=== PATIENT | female | born 1970 | race Caucasian/White ===

== ENCOUNTER 2016-11-10 20:31 | Emergency (ER) | payer OTHER ==
[2016-11-10 21:02] LABS: BASOPHIL 0.1 % (0-2); EOSINOPHIL 3.2 % (0-5); HCT 37.8 % (37.0-47.0); HGB 12.4 g/dl (12.5-16.0); LYMPHOCYTE 32.4 % (15-48); MCH 26.5 pg (25.0-31.0); MCHC 32.8 g/dL (32.0-36.0); MCV 80.8 fL (78.0-100.0); MONOCYTE 5.6 % (0-12); MPV 9.3 fL (6.0-9.5); NEUTROPHIL 58.7 % (41-80); PLT 239 K/uL (150-400); RBC 4.68 M/uL (4.20-5.40); RDW 15.5 % (11.5-14.0)
[2016-11-10 21:12] LABS: INR 0.96 (0.9-1.2); PROTHROMBIN TIME 12.4 SECONDS (11.7-14.0); PTT 30.5 SECONDS (23.2-31.4)
[2016-11-10 21:14] LABS: D-DIMER 0.83 ug/mLFEU (0.00-0.41)
[2016-11-10 21:23] LABS: CKMB 2.01 ng/mL (0.97-4.94); MYOGLOBIN 30 ng/mL (26-65); PRO-BNP 114 pg/mL (0-125); TROPONIN T < 0.010 ng/mL
[2016-11-10 21:24] LABS: ALBUMIN 4.2 g/dL (3.5-5.0); BILIRUBIN - TOTAL 0.2 mg/dL (0.1-1.0); CREATININE 0.8 mg/dL (0.5-1.0); MAGNESIUM 2.04 mg/dL (1.40-2.10); POTASSIUM 3.7 mmol/L (3.5-5.1); TOTAL PROTEIN 6.2 g/dL (6.4-8.3)
== END 2016-11-11 00:27 | disposition home or self-care (01) ==
LOC: FER 20:31
PROVIDERS: Emergency Medicine
DX: R07.89 Other chest pain (principal); R11.2 Nausea with vomiting, unspecified; I10 Essential (primary) hypertension; K21.9 Gastro-esophageal reflux disease without esophagitis; J43.2 Centrilobular emphysema; J45.909 Unspecified asthma, uncomplicated; E78.5 Hyperlipidemia, unspecified; Z72.0 Tobacco use; Z86.711 Personal history of pulmonary embolism; Z98.84 Bariatric surgery status
CPT/HCPCS: 36415; 71010; 71275; 80053; 82550; 82553; 83735; 83874; 83880; 84484; 85025; 85379; 85610; 85730; 93005; 93971; J2270; J2930; Q9967

== ENCOUNTER 2020-08-28 11:18 | Emergency (ER) | payer OTHER ==
[~2020-08-28 11:18] MED LIST: ASPIRIN EC81 MG PO; BACLOFEN 20MG T20 MG PO; CLOBETASOL EMOL15 GM TOP; COMBIVENT RESPIM4 GM INH; DUONEB 2.5-0.5M1 AMP INH; ELMIRON100 MG PO; FENOFIBRATE200 MG PO; FLONASE ALLER15.8 ML; IRON325 M1 PO; LIPITOR40 MG PO; NEURONTIN400 MG PO; NITROQUIK SL0.4 MG SL; PHENERGAN25 M1 PO; PROTONIX 40MG T40 MG PO; REQUIP1 MG PO; VENTOLIN HFA IN18 GM INH; VICODIN 10/3251 EACH PO; XARELTO15 MG PO
[2020-08-28 12:06] LABS: BASOPHIL 0.3 % (0-2); EOSINOPHIL 2.1 % (0-5); HCT 39.7 % (37.0-47.0); HGB 12.9 g/dl (12.5-16.0); MCH 28.5 pg (25.0-31.0); MCHC 32.5 g/dL (32.0-36.0); MCV 87.8 fL (78.0-100.0); MONOCYTE 5.2 % (0-12); MPV 9.4 fL (6.0-9.5); NEUTROPHIL 77.1 % (41-80); NRBC 0; PLT 160 K/uL (150-400); RBC 4.52 M/uL (4.20-5.40); RDW 14.5 % (11.5-14.0); WBC 9.7 K/uL (4.0-10.5)
[2020-08-28 12:10] LABS: INR 0.99 (0.9-1.2); PROTHROMBIN TIME 12.4 SECONDS (11.4-13.6); PTT 31.3 SECONDS (22.2-34.7)
[2020-08-28 12:12] LABS: D-DIMER 1.09 ug/mLFEU (0.00-0.41)
[2020-08-28 12:18] LABS: ALBUMIN 3.3 g/dL (3.4-5.0); BILIRUBIN - TOTAL 0.4 mg/dL (0.2-1.0); BUN/CREAT RATIO (CALC) 14.1 RATIO; CREATININE 0.78 mg/dL (0.51-0.95); GLOBULIN (CALCULATION) 3.8 g/dL; POTASSIUM 3.9 mmol/L (3.5-5.1); TOTAL PROTEIN 7.1 g/dL (6.4-8.2)
[2020-08-28 12:24] LABS: CKMB 0.5 ng/mL (0.0-3.6)
== END 2020-08-28 18:40 | disposition home or self-care (01) ==
LOC: FER 11:18
PROVIDERS: Emergency Medicine
DX: R07.89 Other chest pain (principal); R06.02 Shortness of breath; R11.0 Nausea; R00.0 Tachycardia, unspecified; I10 Essential (primary) hypertension; F17.210 Nicotine dependence, cigarettes, uncomplicated; Z86.711 Personal history of pulmonary embolism; Z91.041 Radiographic dye allergy status
CPT/HCPCS: 36415; 71046; 71275; 80053; 82553; 84484; 85025; 85379; 85610; 85730; 93005; J1200; J1642; J2001; J2930; Q9967

== ENCOUNTER 2020-11-15 22:00 | Day surgery (SDCO) | payer OTHER ==
[~2020-11-15] VITALS: Ht 167.6 cm; Wt 98.1 kg
[2020-11-15 23:15] LABS: BASOPHIL 0.3 % (0-2); EOSINOPHIL 2.9 % (0-5); HCT 36.4 % (37.0-47.0); HGB 12.1 g/dl (12.5-16.0); LYMPHOCYTE 34.4 % (15-48); MCH 29.3 pg (25.0-31.0); MCHC 33.2 g/dL (32.0-36.0); MCV 88.1 fL (78.0-100.0); MONOCYTE 4.7 % (0-12); MPV 9.4 fL (6.0-9.5); NEUTROPHIL 57.5 % (41-80); NRBC 0; PLT 211 K/uL (150-400); RBC 4.13 M/uL (4.20-5.40); RDW 14.4 % (11.5-14.0); WBC 6.7 K/uL (4.0-10.5)
[2020-11-15 23:24] LABS: BUN/CREAT RATIO (CALC) 16.9 RATIO; CREATININE 0.77 mg/dL (0.51-0.95); POTASSIUM 3.9 mmol/L (3.5-5.1)
[2020-11-15 23:33] LABS: CKMB 0.7 ng/mL (0.0-3.6)
[2020-11-16 06:02] LABS: ALBUMIN 3.4 g/dL (3.4-5.0); BILIRUBIN - TOTAL 0.3 mg/dL (0.2-1.0); BUN/CREAT RATIO (CALC) 15.6 RATIO; CREATININE 0.77 mg/dL (0.51-0.95); GLOBULIN (CALCULATION) 3.9 g/dL; POTASSIUM 4.6 mmol/L (3.5-5.1); TOTAL PROTEIN 7.3 g/dL (6.4-8.2)
[2020-11-16] MEDS ORDERED: AZITHROMYCIN250 MG PO (09:48)
[2020-11-16] MEDS ORDERED: PREDNISONE 20MG20 MG PO (10:06)
[2020-11-16] MEDS ORDERED: ADVAIR 500-501 EACH INH (10:06)
[2020-11-16] MEDS ORDERED: TRAMADOL HCL50 MG PO (12:15)
[2020-11-16] MEDS ORDERED: HEARTBURN PREVE20 MG PO (12:19)
--- NOTE | 2020-11-16 13:04 | NUR ---
11/16/20 A referral was made to [facility] for 02 at 2L. A report was given to DAISY Alcocer RN.
== END 2020-11-16 13:50 | disposition home or self-care (01) ==
LOC: FER 22:00 → FTCU 11-16 01:38
PROVIDERS: Emergency Medicine; Nurse Practitioner; ADMIT Internal Medicine
DX: R07.89 Other chest pain (principal); I10 Essential (primary) hypertension; E78.5 Hyperlipidemia, unspecified; J44.0 Chronic obstructive pulmonary disease with (acute) lower respiratory infection; J21.9 Acute bronchiolitis, unspecified; K21.9 Gastro-esophageal reflux disease without esophagitis; F32.9 Major depressive disorder, single episode, unspecified; F17.210 Nicotine dependence, cigarettes, uncomplicated; M54.9 Dorsalgia, unspecified; G89.29 Other chronic pain; F41.9 Anxiety disorder, unspecified; Z88.5 Allergy status to narcotic agent; I25.10 Atherosclerotic heart disease of native coronary artery without angina pectoris; Z86.711 Personal history of pulmonary embolism; Z79.01 Long term (current) use of anticoagulants; Z79.82 Long term (current) use of aspirin; Z98.84 Bariatric surgery status; Z88.6 Allergy status to analgesic agent; Z20.822 Contact with and (suspected) exposure to COVID-19; J98.11 Atelectasis
CPT/HCPCS: 36415; 71046; 71275; 80048; 80053; 80061; 82553; 83036; 84484; 85025; 85379; 94640; G0378; J1200; J1642; J2405; J2930; Q9967; U0002

== ENCOUNTER 2020-11-16 22:47 | Emergency (ER) | payer OTHER ==
[~2020-11-16 22:47] MED LIST changes: +ADVAIR 500-501 EACH INH; +AZITHROMYCIN250 MG PO; +HEARTBURN PREVE20 MG PO; +PREDNISONE 20MG20 MG PO; +TRAMADOL HCL50 MG PO
[2020-11-16 23:39] LABS: BASOPHIL 0.1 % (0-2); EOSINOPHIL 0 % (0-5); HCT 39.9 % (37.0-47.0); HGB 13.2 g/dl (12.5-16.0); MCH 28.9 pg (25.0-31.0); MCHC 33.1 g/dL (32.0-36.0); MCV 87.3 fL (78.0-100.0); MONOCYTE 8.2 % (0-12); MPV 9.4 fL (6.0-9.5); NEUTROPHIL 83.2 % (41-80); NRBC 0; PLT 263 K/uL (150-400); RBC 4.57 M/uL (4.20-5.40); RDW 14.5 % (11.5-14.0)
[2020-11-16 23:40] LABS: WBC 16.5 K/uL (4.0-10.5)
[2020-11-16 23:43] LABS: INR 1.1 (0.9-1.2); PROTHROMBIN TIME 13.5 SECONDS (11.4-13.6)
[2020-11-16 23:48] LABS: ALBUMIN 3.6 g/dL (3.4-5.0); BILIRUBIN - TOTAL 0.2 mg/dL (0.2-1.0); BUN/CREAT RATIO (CALC) 20.5 RATIO; CREATININE 0.73 mg/dL (0.51-0.95); GLOBULIN (CALCULATION) 4.3 g/dL; POTASSIUM 4.3 mmol/L (3.5-5.1); TOTAL PROTEIN 7.9 g/dL (6.4-8.2)
[2020-11-16 23:57] LABS: PTT 78.5 SECONDS (22.2-34.7)
[2020-11-17 00:09] LABS: LACTIC ACID 2.2 mmol/L (0.4-1.9)
== END 2020-11-17 06:47 | disposition other institution (70) ==
LOC: FER 22:47
PROVIDERS: Emergency Medicine Emergency Medical Services
DX: R07.89 Other chest pain (principal); R06.02 Shortness of breath; R11.2 Nausea with vomiting, unspecified; I25.119 Atherosclerotic heart disease of native coronary artery with unspecified angina pectoris; I10 Essential (primary) hypertension; E11.9 Type 2 diabetes mellitus without complications; F17.210 Nicotine dependence, cigarettes, uncomplicated; Z88.5 Allergy status to narcotic agent; Z88.6 Allergy status to analgesic agent; Z91.041 Radiographic dye allergy status; Z91.040 Latex allergy status; Z98.84 Bariatric surgery status; Z90.710 Acquired absence of both cervix and uterus; Z95.9 Presence of cardiac and vascular implant and graft, unspecified
CPT/HCPCS: 36415; 71045; 80053; 83605; 83690; 84484; 85025; 85610; 85730; 93005; J1170; J1200; J2405; J2550; J7030; J7040

== ENCOUNTER 2021-02-08 11:19 | Inpatient (IN) | payer OTHER ==
[~2021-02-08] VITALS: Ht 167.6 cm; Wt 100.8 kg
[2021-02-08 13:41] LABS: BASOPHIL 0.2 % (0-2); EOSINOPHIL 0 % (0-5); HCT 44.4 % (37.0-47.0); HGB 13.8 g/dl (12.5-16.0); LYMPHOCYTE 21.4 % (15-48); MCH 27.7 pg (25.0-31.0); MCHC 31.1 g/dL (32.0-36.0); MONOCYTE 7.3 % (0-12); MPV 9.7 fL (6.0-9.5); NEUTROPHIL 71.1 % (41-80); NRBC 0; PLT 146 K/uL (150-400); RBC 4.99 M/uL (4.20-5.40); RDW 14.6 % (11.5-14.0); WBC 4.3 K/uL (4.0-10.5)
[2021-02-08 13:57] LABS: INFLUENZA A NAA NEGATIVE (NEGATIVE)
[2021-02-08 13:57] LABS: ALBUMIN 3.6 g/dL (3.4-5.0); BILIRUBIN - TOTAL 0.3 mg/dL (0.2-1.0); BUN/CREAT RATIO (CALC) 17.6 RATIO; CREATININE 0.85 mg/dL (0.51-0.95); GLOBULIN (CALCULATION) 4.1 g/dL; POTASSIUM 3.7 mmol/L (3.5-5.1); TOTAL PROTEIN 7.7 g/dL (6.4-8.2)
[2021-02-08 13:58] LABS: CORONAVIRUS 2019 SARS-COV-2 POSITIVE (NEGATIVE)
[2021-02-08 14:39] LABS: BILIRUBIN NEGATIVE (NEGATIVE); BLOOD NEGATIVE Ery/uL (NEGATIVE); CLARITY CLEAR (CLEAR); COLOR YELLOW (YELLOW); GLUCOSE (U) NORMAL (NORMAL); LEUKOCYTES NEGATIVE Leu/uL (NEGATIVE); NITRITE NEGATIVE (NEGATIVE); PROTEIN NEGATIVE (NEGATIVE); SPECIFIC GRAVITY >=1.030 (1.001-1.030); UROBILINOGEN 0.2 mg/dL (0.2-1.0)
[2021-02-09 04:17] LABS: BASOPHIL 0.3 % (0-2); EOSINOPHIL 0 % (0-5); HCT 38.6 % (37.0-47.0); HGB 11.8 g/dl (12.5-16.0); MCH 27.3 pg (25.0-31.0); MCHC 30.6 g/dL (32.0-36.0); MCV 89.4 fL (78.0-100.0); MONOCYTE 7.2 % (0-12); MPV 9.7 fL (6.0-9.5); NEUTROPHIL 55.2 % (41-80); NRBC 0; PLT 123 K/uL (150-400); RBC 4.32 M/uL (4.20-5.40); RDW 14.9 % (11.5-14.0); WBC 3.2 K/uL (4.0-10.5)
[2021-02-09 04:20] LABS: INR 0.99 (0.9-1.2); PROTHROMBIN TIME 12.5 SECONDS (11.8-13.4); PTT 34.3 SECONDS (24.4-34.7)
[2021-02-09 04:29] LABS: BILIRUBIN - TOTAL 0.3 mg/dL (0.2-1.0); BUN/CREAT RATIO (CALC) 15.3 RATIO; CREATININE 0.85 mg/dL (0.51-0.95); GLOBULIN (CALCULATION) 3.4 g/dL; POTASSIUM 3.9 mmol/L (3.5-5.1); TOTAL PROTEIN 6.4 g/dL (6.4-8.2)
[2021-02-10 07:10] LABS: BASOPHIL 0 % (0-2); EOSINOPHIL 0 % (0-5); HCT 40.1 % (37.0-47.0); HGB 12.5 g/dl (12.5-16.0); LYMPHOCYTE 17.4 % (15-48); MCH 27.6 pg (25.0-31.0); MCHC 31.2 g/dL (32.0-36.0); MCV 88.5 fL (78.0-100.0); MONOCYTE 6.7 % (0-12); MPV 10.3 fL (6.0-9.5); NEUTROPHIL 75.6 % (41-80); NRBC 0; PLT 128 K/uL (150-400); RBC 4.53 M/uL (4.20-5.40); RDW 14.6 % (11.5-14.0); WBC 3.9 K/uL (4.0-10.5)
[2021-02-10 07:33] LABS: BUN/CREAT RATIO (CALC) 21.3 RATIO; CREATININE 0.75 mg/dL (0.51-0.95); MAGNESIUM 2.4 mg/dL (1.8-2.4); POTASSIUM 4.2 mmol/L (3.5-5.1)
--- NOTE | 2021-02-10 08:53 | NUR ---
DURING MORNING ASSESSMENT PATIENT WAS VERY UP SET WITH [employer],SHE COULDN'T TELL ME WHAT FOR JUST THAT SHE TURNED OFF HER OWN IV CAUSE IF WAS BEEPING FOR OVER AN HOUR, I ASKED HER TO NOT DO THAT TO RING OUT AND WE WOULD TAKE CARE OF IT, THAT IT COULD CAUSE ISSUES WITH THE LINE IF SHE DID THAT. SHE THEN TOLD ME THAT I NEEDED TO GET HER SOME COFFEE BECAUSE WATER MAKES HER THROW UP. I TOLD HER THAT WAS NOT PROBLEM AND WOULD GET HER SOME COFFEE. I ASKED THE AIDE OUTSIDE IN THE BILLY TO PLEASE GO AND GET HER SOME COFFEE WITH SUGAR. SHE TOOK HER MEDICATION. I WENT INTO THE NEXT PATIENT'S ROOM. UPON LEAVING THAT ROOM THE AIDE WAS VERY UPSET BECAUSE SHE WAS YELLING WHILE TALKING TO SOMEONE ON THE PHONE. EVERY OTHER WORD WAS A CUSS WORD. SHE STATED THAT WE JUST SHUT HER UP IN A ROOM AND KEEPS THE DOOR CLOSED AND AND DID NOT CHECK ON HER ALL NIGHT, THAT WE DON'T CARE, WE HAVE CAUSED HER TO GET COVID AND NOW SHE IS SICKER NOW THAN WHEN SHE ARRIVED. SHE IS SWOLLEN ALL OVER AND DOSE NOT RECONGINZE HERSELF. I ASKED HER WHAT WE COULD DO TO MAKE HER HAPPIER, THAT WOULD COULD HEAR HER YELLING AND WANTED TO CALM HER DOWN. SHE STATED IF I COULD GIVE HER SOME SUGAR SHE WOULD BE, THAT WE ACT LIKE IT IS A SIN TO GIVE HER SUGAR. I TOOK HER A COFFEE CUP FULL OF SUGAR AND ASKED IF SHE WAS HAPPY AND SHE SAID YES. AFTER ABOUT 15 MIN SHE CALLED OUT, I WENT BACK INTO THE ROOM TO ASK WHAT SHE NEEDED AND SHE STATED, "I WILL NOT TAKE ANYMORE MEDICATION UNTIL THE DOCTOR TAKES CARE OF HER SHAKING." I INFORMED DR FITZPATRICK OF THIS.
--- NOTE | 2021-02-11 01:30 | NUR ---
PT VERY VERBAL, HAD MANY COMPLAINTS RE: CARE RECEIVED. ALLOWED PT TO PROCESS ALL FEELINGS/VENT. REASSURED PT THAT WE WOULD HAVE A GREAT NIGHT TOGETHER. PT RECEPTIVE TO REDIRECTION. PT USES MUCH FOUL LANGUAGE. THIS WAS EARLY IN SHIFT; PT HAS CALMED SINCE; RESTING WELL. MONITORING.
[2021-02-11 06:35] LABS: BASOPHIL 0 % (0-2); EOSINOPHIL 0 % (0-5); HCT 39.4 % (37.0-47.0); HGB 12.2 g/dl (12.5-16.0); LYMPHOCYTE 12.8 % (15-48); MCH 27.8 pg (25.0-31.0); MCV 89.7 fL (78.0-100.0); MONOCYTE 3.4 % (0-12); MPV 10.1 fL (6.0-9.5); NEUTROPHIL 83.5 % (41-80); PLT 148 K/uL (150-400); RBC 4.39 M/uL (4.20-5.40); RDW 14.7 % (11.5-14.0)
[2021-02-11 07:02] LABS: BUN/CREAT RATIO (CALC) 27.4 RATIO; CREATININE 0.73 mg/dL (0.51-0.95); MAGNESIUM 2.5 mg/dL (1.8-2.4); POTASSIUM 4.4 mmol/L (3.5-5.1)
[2021-02-11 07:12] LABS: BAND 4 % (0-10); LYMPHOCYTE(M) 7 % (15-48); MONOCYTE(M) 2 % (0-12); NEUTROPHILS(M) 87 % (41-80); NRBC 0; PLATELET ESTIMATE NORMAL; TOTAL CELL COUNT 100
[2021-02-11 07:13] LABS: PLATELET MORPHOLOGY NORMAL
[2021-02-11 09:38] LABS: BILIRUBIN NEGATIVE (NEGATIVE); BLOOD NEGATIVE Ery/uL (NEGATIVE); CLARITY CLEAR (CLEAR); COLOR YELLOW (YELLOW); GLUCOSE (U) NORMAL (NORMAL); LEUKOCYTES NEGATIVE Leu/uL (NEGATIVE); NITRITE NEGATIVE (NEGATIVE); PROTEIN NEGATIVE (NEGATIVE); UROBILINOGEN 0.2 mg/dL (0.2-1.0); pH 6.5 (5.0-9.0)
[2021-02-12 06:10] LABS: BASOPHIL 0 % (0-2); EOSINOPHIL 0 % (0-5); HCT 40.6 % (37.0-47.0); HGB 12.6 g/dl (12.5-16.0); LYMPHOCYTE 20.8 % (15-48); MCH 27.8 pg (25.0-31.0); MCV 89.4 fL (78.0-100.0); MONOCYTE 6.2 % (0-12); MPV 10.9 fL (6.0-9.5); NEUTROPHIL 72.6 % (41-80); NRBC 0; PLT 155 K/uL (150-400); RBC 4.54 M/uL (4.20-5.40); RDW 14.6 % (11.5-14.0); WBC 7.6 K/uL (4.0-10.5)
[2021-02-12 06:22] LABS: BUN/CREAT RATIO (CALC) 32.9 RATIO; CREATININE 0.73 mg/dL (0.51-0.95)
--- NOTE | 2021-02-12 07:18 | NUR ---
UPON ARRIVING TO ROOM TO DO MY ASSESSMENT, PATIENT STATED THAT SHE IS NOT TAKING ANY MEDICATIONS. I TRIED TO EXPLAIN THAT SHE NEEDED TO ATLEAST TAKE HER HOME MEDICATION AND SHE REFUSED. SHE STATED THAT LEXII AND THE DR TOLD HER NOT TO TAKE ANY MEDICATIONS THAT IT WAS EITHER THE COVID OR AN ALLERGIC REACTION THAT SHE WAS HAVING AND SHE NEEDED NOT TO TAKE ANYTHING. SHE ALSO STATED THAT THE DR TOLD HER THAT WE NEEDED TO MAKE HER EAT. I EXPLAINED THAT I COULDN'T MAKE HER EAT, I COULD BRING HER WHAT SHE WANTED BUT I COULD NOT MAKE HER. THAT SHE HAD TO DO THAT ON HER OWN. SHE THEN STATED THAT ONE WAY OR ANOTHER SHE WAS LEAVING TODAY.
== END 2021-02-12 13:00 | disposition home or self-care (01) | DRG 177 ==
LOC: FER 11:19 → FMS 15:47
PROVIDERS: Internal Medicine; Nurse Practitioner; Nurse Practitioner Family; ADMIT Internal Medicine
PROC: XW033E5 Introduction of Remdesivir Anti-infective into Peripheral Vein, Percutaneous Approach, New Technology Group 5 (ICD-10-PCS; principal; 2021-02-08)
DX: U07.1 COVID-19 (principal); J96.21 Acute and chronic respiratory failure with hypoxia; J44.1 Chronic obstructive pulmonary disease with (acute) exacerbation; J44.0 Chronic obstructive pulmonary disease with (acute) lower respiratory infection; J98.11 Atelectasis; G25.3 Myoclonus; H53.8 Other visual disturbances; T50.995A Adverse effect of other drugs, medicaments and biological substances, initial encounter; I10 Essential (primary) hypertension; E78.5 Hyperlipidemia, unspecified; K21.9 Gastro-esophageal reflux disease without esophagitis; K59.09 Other constipation; G25.81 Restless legs syndrome; G62.9 Polyneuropathy, unspecified; G89.29 Other chronic pain; Z86.711 Personal history of pulmonary embolism; Z86.718 Personal history of other venous thrombosis and embolism; Z98.84 Bariatric surgery status; Z90.710 Acquired absence of both cervix and uterus; Z98.890 Other specified postprocedural states; Z82.49 Family history of ischemic heart disease and other diseases of the circulatory system; Z82.3 Family history of stroke; Z88.6 Allergy status to analgesic agent; Z91.041 Radiographic dye allergy status; Z91.040 Latex allergy status; Z79.82 Long term (current) use of aspirin; Z79.01 Long term (current) use of anticoagulants; Z79.899 Other long term (current) drug therapy
CPT/HCPCS: 36415; 36600; 70450; 71046; 71250; 80048; 80053; 81003; 82803; 83605; 83735; 83880; 84145; 84484; 85025; 85379; 85610; 85730; 87040; 93005; 94010; 94640; 94668; 94760; 94762; C9399; J0456; J1100; J1170; J2405; J2543; J7030; J7050; U0002

== ENCOUNTER 2021-08-12 21:28 | Emergency (ER) | payer OTHER ==
[2021-08-12 21:54] LABS: BASOPHIL 0.5 % (0-2); EOSINOPHIL 2.4 % (0-5); HCT 42.5 % (37.0-47.0); HGB 13.6 g/dl (12.5-16.0); LYMPHOCYTE 38.1 % (15-48); MCH 27.1 pg (25.0-31.0); MCV 84.8 fL (78.0-100.0); MONOCYTE 4.9 % (0-12); MPV 9.2 fL (6.0-9.5); NEUTROPHIL 53.9 % (41-80); NRBC 0; PLT 204 K/uL (150-400); RBC 5.01 M/uL (4.20-5.40); RDW 15.2 % (11.5-14.0); WBC 8.6 K/uL (4.0-10.5)
[2021-08-12 22:38] LABS: ALBUMIN 3.5 g/dL (3.4-5.0); BILIRUBIN - TOTAL 0.2 mg/dL (0.2-1.0); BUN/CREAT RATIO (CALC) 24.7 RATIO; CREATININE 0.73 mg/dL (0.51-0.95); FT4 (FREE T4) 0.8 ng/dL (0.76-1.46); GLOBULIN (CALCULATION) 3.7 g/dL; MAGNESIUM 2.1 mg/dL (1.8-2.4); POTASSIUM 3.8 mmol/L (3.5-5.1); TOTAL PROTEIN 7.2 g/dL (6.4-8.2)
[2021-08-12 23:19] LABS: INR 0.87 (0.9-1.2); PROTHROMBIN TIME 11.3 SECONDS (11.8-13.4)
[2021-08-12 23:47] LABS: CORONAVIRUS 2019 SARS-COV-2 NEGATIVE (NEGATIVE); INFLUENZA A NAA NEGATIVE (NEGATIVE)
[2021-08-13] MEDS ORDERED: PREDNISONE 20MG20 MG PO (01:14)
[2021-08-13] MEDS ORDERED: NORCO 5-325 TA1 EACH PO (01:17)
== END 2021-08-13 02:00 | disposition home or self-care (01) ==
LOC: FER 21:28
PROVIDERS: Internal Medicine
DX: R07.89 Other chest pain (principal); R06.2 Wheezing; R10.9 Unspecified abdominal pain; I10 Essential (primary) hypertension; J45.909 Unspecified asthma, uncomplicated; F17.210 Nicotine dependence, cigarettes, uncomplicated; Z79.01 Long term (current) use of anticoagulants; Z79.82 Long term (current) use of aspirin; Z79.899 Other long term (current) drug therapy; Z20.822 Contact with and (suspected) exposure to COVID-19
CPT/HCPCS: 36415; 71250; 80053; 83690; 83735; 84145; 84439; 84443; 84484; 85025; 85379; 85610; 85730; 93005; 93970; 94640; 94664; J1100; J1170; J2405; J2550; U0002

== ENCOUNTER 2021-09-10 11:57 | Emergency (ER) | payer OTHER ==
[~2021-09-10 11:57] MED LIST changes: +NORCO 5-325 TA1 EACH PO
[2021-09-10 13:58] LABS: BASOPHIL 0.3 % (0-2); HCT 43.7 % (37.0-47.0); HGB 13.8 g/dl (12.5-16.0); MCHC 31.6 g/dL (32.0-36.0); MCV 85.4 fL (78.0-100.0); MONOCYTE 6.7 % (0-12); MPV 9.1 fL (6.0-9.5); NEUTROPHIL 56.8 % (41-80); NRBC 0; PLT 225 K/uL (150-400); RBC 5.12 M/uL (4.20-5.40); RDW 15.3 % (11.5-14.0); WBC 6.1 K/uL (4.0-10.5)
[2021-09-10 14:12] LABS: ALBUMIN 3.4 g/dL (3.4-5.0); BILIRUBIN - TOTAL 0.3 mg/dL (0.2-1.0); BUN/CREAT RATIO (CALC) 17.5 RATIO; CREATININE 0.8 mg/dL (0.51-0.95); GLOBULIN (CALCULATION) 3.9 g/dL; POTASSIUM 4.2 mmol/L (3.5-5.1); TOTAL PROTEIN 7.3 g/dL (6.4-8.2)
== END 2021-09-10 14:34 | disposition left against medical advice (07) ==
LOC: FER 11:57
PROVIDERS: Physician Assistant
DX: R07.89 Other chest pain (principal); M25.572 Pain in left ankle and joints of left foot; I10 Essential (primary) hypertension; J44.9 Chronic obstructive pulmonary disease, unspecified; F17.210 Nicotine dependence, cigarettes, uncomplicated; Z88.5 Allergy status to narcotic agent; Z88.6 Allergy status to analgesic agent; Z91.040 Latex allergy status; Z91.041 Radiographic dye allergy status; Z53.29 Procedure and treatment not carried out because of patient's decision for other reasons; Z28.310 Unvaccinated for COVID-19
CPT/HCPCS: 36415; 71045; 73610; 80053; 84484; 85025; 93005